=== PATIENT | female | born 1960 | race Caucasian/White ===

== ENCOUNTER → 2017-12-21 | Outpatient (CLI) | payer MEDICARE ==
[~2017-12-21] MED LIST: CLON0.5T PO; ESTR0.5T PO; FLUO40CA2 PO; TRAZ50TA18 PO
== END | disposition home or self-care (01) ==
LOC: CARD 14:23
PROVIDERS: ATTEND Family Medicine
DX: J42 Unspecified chronic bronchitis (principal)
CPT/HCPCS: 94060

== ENCOUNTER 2021-06-06 15:40 | Inpatient (IN) | payer MEDICARE ==
[~2021-06-06] VITALS: Ht 157.5 cm; Wt 130.9 kg
[~2021-06-06 15:40] MED LIST changes: -TRAZ50TA18 PO; +TRAZ50TA66 PO
[2021-06-06 16:28] LABS: BASOPHILS % (AUTO) 1 % (0-1); EOSINOPHILS % (AUTO) 0 % (1-7); LYMPHOCYTES % (AUTO) 16 % (22-44); MEAN CORPUSCULAR HEMOGLOBIN 31.8 pg (27.0-34.8); MEAN CORPUSCULAR HGB CONC 34.2 g/dL (32.4-35.8); MEAN PLATELET VOLUME 7.9 fL (7.4-10.4); MONOCYTES % (AUTO) 6 % (2-9); NEUTROPHILS % (AUTO) 78 % (42-75); PLATELET COUNT 413 x10^3/uL (130-400); RED BLOOD COUNT 5.21 x10^6/uL (3.82-5.3); RED CELL DISTRIBUTION WIDTH 13.8 % (9.6-15.2)
[2021-06-06] MEDS ORDERED: ASPIRIN 81 MG TABLET CHEW PO ONE (16:30)
[2021-06-06 16:37] LABS: ALANINE AMINOTRANSFERASE 36 U/L (12-78); ALBUMIN 3.3 g/dL (3.4-5.0); ANION GAP 14 mmol/L (5-15); CALCIUM 9.3 mg/dL (8.5-10.1); CHLORIDE 103 mmol/L (98-107); CREATININE 1.75 mg/dL (0.55-1.02)
[2021-06-06 16:42] LABS: ALKALINE PHOSPHATASE 76 U/L (45-117); BILIRUBIN,TOTAL 0.7 mg/dL (0.2-1.0); TOTAL PROTEIN 7.4 g/dL (6.4-8.2); TROPONIN I < 0.015 ng/mL (0.000-0.045)
[2021-06-06] MEDS ORDERED: ASPIRIN 81 MG TABLET CHEW ONE (16:50)
[2021-06-06] MEDS ORDERED: DULO30CA2 PO (16:54)
[2021-06-06] MEDS ORDERED: LISI30TA4 PO (16:55)
[2021-06-06] MEDS ORDERED: METO25TA35 PO (16:55)
[2021-06-06] MEDS ORDERED: METOPROLOL 1 MG/ML, 5ML ONE ×3 (17:16→17:46)
[2021-06-06] MEDS: METOPROLOL 1 MG/ML, 5ML IVPush PRN ×2 (17:17→17:34)
[2021-06-06] MEDS ORDERED: LACTATED RINGERS 1,000 ML IVBOLUS ONE (19:00)
--- NOTE | 2021-06-06 19:14 | NUR ---
report from ysabel assumed care of pt at this time
[2021-06-06] MEDS ORDERED: ONDANSETRON ODT 4 MG PO PRN (20:30)
[2021-06-06] MEDS ORDERED: BISACODYL 10 MG SUPP PR PRN (20:30)
[2021-06-06] MEDS ORDERED: morphine SULFATE 10 MG/ML, 1ML IVPush PRN (20:30)
[2021-06-06] MEDS ORDERED: POLYETHYLENE GLYCOL 17 GM PACKET PO PRN (20:30)
--- NOTE | 2021-06-06 20:35 | NUR ---
report to stepan guaman to room with tech
[2021-06-06 21:07] LABS: FREE T4 (FREE THYROXINE) 1.2 ng/dL (0.76-1.46)
[2021-06-06 21:18] VITALS: BP 111/75
[2021-06-06] MEDS: METOPROLOL TARTRATE 25 MG TAB PO SCH (21:38)
[2021-06-06] MEDS: TRAZODONE 50MG TABLET PO SCH (21:39)
[2021-06-06] MEDS: HEPARIN 5,000 UNITS/ML, 1ML SQ SCH (21:39)
[2021-06-06] MEDS: SODIUM CHLORIDE FLUSH 10ML SYR IVF SCH (21:39)
[2021-06-06 22:38] LABS: TROPONIN I < 0.015 ng/mL (0.000-0.045)
[2021-06-07 00:37] VITALS: BP 107/73
[2021-06-07 03:02] LABS: CLOSTRIDIUM DIFFICILE ANTIGEN NEGATIVE; CLOSTRIDIUM DIFFICILE TOXIN NEGATIVE (Negative)
[2021-06-07] MEDS ORDERED: MAGNESIUM SULFATE PMX 2GM/50ML 50 ML IV ONE (04:00)
[2021-06-07] MEDS ORDERED: MAGNESIUM SULFATE PMX 2GM/50ML 50 ML ONE (04:03)
[2021-06-07] MEDS: HEPARIN 5,000 UNITS/ML, 1ML SQ SCH (05:41)
[2021-06-07 06:35] LABS: BASOPHILS % (AUTO) 1 % (0-1); EOSINOPHILS % (AUTO) 1 % (1-7); LYMPHOCYTES % (AUTO) 27 % (22-44); MEAN CORPUSCULAR HEMOGLOBIN 31.6 pg (27.0-34.8); MEAN PLATELET VOLUME 8.6 fL (7.4-10.4); MONOCYTES % (AUTO) 8 % (2-9); NEUTROPHILS % (AUTO) 62 % (42-75); PLATELET COUNT 321 x10^3/uL (130-400); RED BLOOD COUNT 4.63 x10^6/uL (3.82-5.3); RED CELL DISTRIBUTION WIDTH 14.2 % (9.6-15.2)
[2021-06-07 06:48] LABS: ANION GAP 10 mmol/L (5-15); CALCIUM 8.7 mg/dL (8.5-10.1); CHLORIDE 101 mmol/L (98-107)
[2021-06-07 06:53] LABS: CHOL/HDL RATIO 2.9; CHOLESTEROL, TOTAL 86 mg/dL (140-239); CREATININE 1.24 mg/dL (0.55-1.02); HDL CHOL % 35 % (28-40); HDL CHOLESTEROL (DIRECT) 30 mg/dL (40-60); LDL CHOLESTEROL,CALCULATED 8 mg/dL (54-169); LDL/HDL RATIO 0.3 (0.5-3.0); TRIGLYCERIDES 239 mg/dL (50-200); TROPONIN I < 0.015 ng/mL (0.000-0.045); VLDL CHOLESTEROL 48 mg/dL (0-25)
[2021-06-07 07:35] VITALS: BP 131/77
[2021-06-07] MEDS: SENNA/DOCUSATE TABLET PO SCH (08:02)
[2021-06-07] MEDS: METOPROLOL TARTRATE 25 MG TAB PO SCH ×3 (08:03→20:03)
[2021-06-07] MEDS: DULOXETINE 30 MG CAPSULE.DR PO SCH (08:03)
[2021-06-07] MEDS: SODIUM CHLORIDE FLUSH 10ML SYR IVF SCH ×2 (08:03→20:06)
[2021-06-07] MEDS ORDERED: LISINOPRIL 10 MG TABLET PO SCH (09:00)
[2021-06-07] MEDS ORDERED: ESTRADIOL 0.5 MG TABLET PO SCH (09:00)
[2021-06-07] MEDS ORDERED: OMNIPAQUE 350 MG/ML, 75ML BOTTLE ONE (09:05)
[2021-06-07] MEDS: Enoxaparin 1 mg/kg protocol SQ SCH ×2 (09:30→21:30)
[2021-06-07] MEDS: ENOXAPARIN 120MG/0.8ML SQ SCH ×2 (09:49→21:13)
[2021-06-07] MEDS: ACETAMINOPHEN 325 MG TABLET PO PRN (12:07)
[2021-06-07 14:34] VITALS: BP 122/74
[2021-06-07] MEDS: TRAZODONE 50MG TABLET PO SCH (20:05)
[2021-06-07 20:17] VITALS: BP 121/65
[2021-06-08 00:02] VITALS: BP 130/76
[2021-06-08] MEDS: ACETAMINOPHEN 325 MG TABLET PO PRN (03:33)
[2021-06-08 05:45] LABS: BASOPHILS % (AUTO) 1 % (0-1); EOSINOPHILS % (AUTO) 6 % (1-7); LYMPHOCYTES % (AUTO) 26 % (22-44); MEAN CORPUSCULAR HEMOGLOBIN 31.4 pg (27.0-34.8); MEAN CORPUSCULAR HGB CONC 33.7 g/dL (32.4-35.8); MEAN PLATELET VOLUME 7.9 fL (7.4-10.4); MONOCYTES % (AUTO) 7 % (2-9); NEUTROPHILS % (AUTO) 61 % (42-75); PLATELET COUNT 268 x10^3/uL (130-400); RED BLOOD COUNT 4.21 x10^6/uL (3.82-5.3); RED CELL DISTRIBUTION WIDTH 13.7 % (9.6-15.2)
[2021-06-08 05:56] LABS: ALANINE AMINOTRANSFERASE 29 U/L (12-78); ALBUMIN 2.5 g/dL (3.4-5.0); ANION GAP 8 mmol/L (5-15); CHLORIDE 102 mmol/L (98-107); CREATININE 0.89 mg/dL (0.55-1.02)
[2021-06-08 05:58] LABS: ALKALINE PHOSPHATASE 59 U/L (45-117); BILIRUBIN,TOTAL 0.5 mg/dL (0.2-1.0); TOTAL PROTEIN 5.7 g/dL (6.4-8.2)
[2021-06-08 08:30] VITALS: BP 131/75
[2021-06-08] MEDS: SENNA/DOCUSATE TABLET PO SCH (08:34)
[2021-06-08] MEDS: SODIUM CHLORIDE FLUSH 10ML SYR IVF SCH (08:35)
[2021-06-08] MEDS: DULOXETINE 30 MG CAPSULE.DR PO SCH (08:35)
[2021-06-08] MEDS: METOPROLOL TARTRATE 25 MG TAB PO SCH (08:35)
[2021-06-08] MEDS ORDERED: APIXABAN 5 MG TABLET PO SCH (09:00)
[2021-06-08] MEDS ORDERED: ALBU8.5H8 INH (09:08)
[2021-06-08] MEDS ORDERED: APIX5TAB PO (09:08)
[2021-06-08] MEDS ORDERED: METO-95 PO (09:08)
== END 2021-06-08 13:43 | disposition home or self-care (01) | DRG 175 ==
LOC: ED 18:00 → EDIP 18:46 → 5SO 21:03
PROVIDERS: ADMIT Emergency Medicine; ATTEND Family Medicine
DX: I26.99 Other pulmonary embolism without acute cor pulmonale (principal); N17.0 Acute kidney failure with tubular necrosis; I48.92 Unspecified atrial flutter; E87.1 Hypo-osmolality and hyponatremia; Z68.43 Body mass index [BMI] 50.0-59.9, adult; D75.1 Secondary polycythemia; E66.01 Morbid (severe) obesity due to excess calories; F32.9 Major depressive disorder, single episode, unspecified; E86.0 Dehydration; D47.3 Essential (hemorrhagic) thrombocythemia; F41.1 Generalized anxiety disorder; I10 Essential (primary) hypertension; J44.9 Chronic obstructive pulmonary disease, unspecified; Z96.641 Presence of right artificial hip joint; Z87.891 Personal history of nicotine dependence; Z90.710 Acquired absence of both cervix and uterus
CPT/HCPCS: 36415; 71045; 71275; 80048; 80053; 80061; 83036; 83735; 84439; 84443; 84484; 85025; 85379; 87324; 93005; 93306; 93970; 96374; 96375; G0378; J1644; J1650; Q9967; J3475; J7120